=== PATIENT | male | born 1980 | race Caucasian/White ===

== ENCOUNTER 2017-01-09 13:08 | Emergency (ER) | payer SELFPAY ==
[~2017-01-09] VITALS: Ht 172.7 cm; Wt 80.1 kg
[~2017-01-09 13:08] MED LIST: BACTRIM,SEPT1 TABLET PO; FLEXERIL10 MG PO; KEFLEX500 MG PO; NAPROSYN500 MG PO; PHENYTEK300 MG PO; SEROQUEL300 MG PO; SEROQUEL400 MG PO; ZOLOFT25 MG PO
[2017-01-09] MEDS ORDERED: MOTRIN600 MG PO (16:41)
[2017-01-09] MEDS ORDERED: KEFLEX500 MG PO (16:41)
[2017-01-09 16:54] VITALS: BP 120/79
== END 2017-01-09 16:56 | disposition home or self-care (01) ==
LOC: EME 13:08
DX: L03.115 Cellulitis of right lower limb (principal); M79.604 Pain in right leg; S09.90XA Unspecified injury of head, initial encounter; W22.8XXA Striking against or struck by other objects, initial encounter; F17.200 Nicotine dependence, unspecified, uncomplicated
CPT/HCPCS: 70450; 93971; 99281; 99284

== ENCOUNTER → 2017-05-03 | Outpatient (CLI) | payer SELFPAY ==
[~2017-05-03] MED LIST changes: +MOTRIN600 MG PO
== END | disposition home or self-care (01) ==
LOC: RAD 14:10
DX: R93.7 Abnormal findings on diagnostic imaging of other parts of musculoskeletal system (principal); S09.90XD Unspecified injury of head, subsequent encounter; R51 Headache
CPT/HCPCS: 72040

== ENCOUNTER → 2018-01-26 | Outpatient (CLI) | payer SELFPAY | END | disposition home or self-care (01) | LOC: NUC 12-06 09:30 | DX: R07.9 Chest pain, unspecified (principal) | CPT/HCPCS: 78452; 93017; A9500 ==